=== PATIENT | female | born 1985 | race Caucasian/White ===

== ENCOUNTER → 2023-09-11 11:17 | Outpatient (REF) | payer OTHER, SELFPAY ==
[2023-09-11 18:10] LABS: Mumps Virus IgG Negative; Rubeola (Measles) IgG Equivocal; Varicella Zoster IgG (VZV) Positive
[2023-09-11 20:25] LABS: Hepatitis B Surface Antibody Positive
[2023-09-11 20:38] LABS: Rubella Positive
[2023-09-14 06:17] LABS: Quantiferon Mitogen minus NIL >10.00 IU/mL; Quantiferon NIL 0.03 IU/mL; Quantiferon Plus TB2 minus NIL 0.01 IU/mL (0.00-0.34); Quantiferon TB Gold Plus Negative (Negative)
== END ==
LOC: OHS 11:17
PROVIDERS: ATTENDING PHYSICIAN Nurse Practitioner Family
DX: Z23 Encounter for immunization (principal)
CPT/HCPCS: 36415; 86480; 86706; 86735; 86762; 86765; 86787